=== PATIENT | male | born 1960 | race African-American/Black ===

== ENCOUNTER 2021-10-11 17:19 | Inpatient (IN) ==
[2021-10-11] MEDS ORDERED: FUROSEMIDE 40 MG/4 ML VIAL IV STA (17:44)
[2021-10-11] MEDS ORDERED: methylPREDNISolone SOD SUC 125 MG/2 ML VIAL IV STA (17:44)
[2021-10-11] MEDS ORDERED: ALBUTEROL/IPRATROPIUM 3 ML NEB RESP TX STA (17:44)
[2021-10-11 18:13] LABS: Basophils # 0.1 10*3/uL (0.0-0.2); Eosinophils % 0.1 % (0.00-10.9); Hematocrit 46.1 VOL% (42.0-52.0); Hemoglobin 13.5 GM/DL (14.0-18.0); Immature Granulocytes % 0.3 %; Immature Granulocytes Absolute 0.02 #; Lymphocytes # 1.7 10*3/uL (1.4-4.0); Lymphocytes % 23.5 % (21.2-54.2); Mean Corpuscular HGB Conc 29.3 GM/DL (32-36); Mean Corpuscular Volume 90.7 FL (87-102); Mean Platelet Volume 11.3 FL (9.6-12.0); Monocytes % 9.7 % (1.7-12.7); Neutrophils % 65.4 % (38.7-73.9); Platelet Count 375 T/CUMM (130-400); Red Blood Count 5.08 MC/CUMM (3.8-5.5); Red Cell Distribution Width 21.8 % (9.3-17.3); White Blood Count 7.2 T/CUMM (4-12)
[2021-10-11 18:55] LABS: Albumin 3.3 G/DL (3.4-5.0); Bilirubin,Total 0.6 MG/DL (0.20-1.00); Calcium 10.4 MG/DL (8.5-10.1); Osmolality,Calculated 301.7 MOS/KG (273-304); Potassium 4.1 MMOL/L (3.5-5.1); Total Protein 9.2 G/DL (6.4-8.2)
[2021-10-11] MEDS ORDERED: ONDANSETRON 4 MG/2 ML VIAL IV PRN (19:02)
[2021-10-11] MEDS ORDERED: DOCUSATE SODIUM 100 MG CAPSULE PO PRN (19:02)
[2021-10-11] MEDS ORDERED: guaiFENesin/DM ER 600-30 MG TABLET PO PRN (19:02)
[2021-10-11] MEDS ORDERED: GLUCAGON 1 MG VIAL IM PRN (19:02)
[2021-10-11] MEDS ORDERED: ACETAMINOPHEN 325 MG TABLET PO PRN (19:02)
[2021-10-11] MEDS ORDERED: hydrALAZINE 20 MG/1 ML VIAL IV PRN (19:02)
[2021-10-11] MEDS ORDERED: ZALEPLON 5 MG CAPSULE PO PRN (19:02)
[2021-10-11] MEDS ORDERED: DEXTROSE 50% 25 GM/50 ML SYRINGE IV PRN (19:02)
[2021-10-11] MEDS ORDERED: NICOTINE 21 MG/24 HR PATCH TRANSDERM PRN (19:02)
[2021-10-11] MEDS ORDERED: diphenhydrAMINE CAP 25 MG CAPSULE PO PRN (19:02)
[2021-10-11] MEDS ORDERED: PANTOPRAZOLE 40 MG VIAL IV ONE (19:05)
[2021-10-11] MEDS ORDERED: SODIUM CHLORIDE 0.9% 1,000 ML IV STA (19:29)
[2021-10-11] MEDS: SODIUM CHLORIDE 0.9% 1,000 ML IV SCH (19:33)
[2021-10-11] MEDS ORDERED: ACETAMINOPHEN 325 MG/10.15 ML UDCUP PEG PRN (19:38)
[2021-10-11] MEDS ORDERED: CLINDAMYCIN INJ 600 MG/50 ML PREMIX IV SCH (20:00)
[2021-10-11] MEDS: PIPERACILLIN/TAZOBACTAM 3,375 MG in SODIUM CHLORIDE 0.9% 100 ML IV SCH (20:06)
[2021-10-11 20:15] LABS: Bilirubin,Urine Negative (Negative); Blood, Urine Large mg/dL (Negative); Calcium Oxalate Crystals,Urine Occasional /HPF (Few); Glucose,Urine (UA) Negative (Negative); Ketones,Urine Negative (Negative); Mucus,Urine Occasional /LPF (Occasional); Nitrite,Urine Negative (Negative); Protein,Urine 100 MG/DL; RBC,Urine 537 /HPF (0-4); Urine Appearance CLOUDY (Clear); Urine Color Red (Yellow); Urine Specific Gravity 1.014 (1.001-1.035)
[2021-10-11] MEDS: INSULIN LISPRO 100 UNIT/ML SUBCUT SCH (21:21)
[2021-10-12] MEDS: VANCOMYCIN INJ 1,000 MG in SODIUM CHLORIDE 0.9% 250 ML IV SCH ×2 (00:49→11:45)
[2021-10-12] MEDS: ALBUTEROL/IPRATROPIUM 3 ML NEB RESP TX SCH ×2 (01:25→08:10)
[2021-10-12] MEDS: PIPERACILLIN/TAZOBACTAM 3,375 MG in SODIUM CHLORIDE 0.9% 100 ML IV SCH (05:37)
[2021-10-12 06:29] LABS: Calcium 9.4 MG/DL (8.5-10.1); Osmolality,Calculated 300.7 MOS/KG (273-304); Potassium 3.6 MMOL/L (3.5-5.1)
[2021-10-12 07:21] LABS: Basophils % 0.3 % (0.0-0.8); Hematocrit 41.5 VOL% (42.0-52.0); Hemoglobin 12.2 GM/DL (14.0-18.0); Immature Granulocytes % 0.2 %; Immature Granulocytes Absolute 0.01 #; Lymphocytes # 1.2 10*3/uL (1.4-4.0); Mean Corpuscular HGB Conc 29.4 GM/DL (32-36); Mean Corpuscular Volume 91.4 FL (87-102); Mean Platelet Volume 12.3 FL (9.6-12.0); Monocytes % 5.3 % (1.7-12.7); Neutrophils % 74.2 % (38.7-73.9); Platelet Count 321 T/CUMM (130-400); Red Blood Count 4.54 MC/CUMM (3.8-5.5); Red Cell Distribution Width 21.3 % (9.3-17.3)
[2021-10-12 09:07] LABS: Hypochromia 1+; Lymphocytes 16 % (20-55); Microcytosis 1+; Platelet Estimate Adequate; Segmented Neutrophils 74 % (50-85); Total Cells Counted 100
[2021-10-12] MEDS: PANTOPRAZOLE 40 MG VIAL IV SCH (09:31)
[2021-10-12] MEDS: INSULIN LISPRO 100 UNIT/ML SUBCUT SCH ×4 (09:31→21:45)
[2021-10-12] MEDS ORDERED: SODIUM PHOSPHATE ENEMA 133 ML BOTTLE RECTAL PRN (10:08)
[2021-10-12] MEDS ORDERED: MAGNESIUM HYDROXIDE SUSP 30 ML UDCUP PEG PRN (10:08)
[2021-10-12] MEDS: SODIUM CHLORIDE 0.9% 1,000 ML IV SCH ×2 (10:34→21:43)
[2021-10-12] MEDS ORDERED: INFLUENZA VIRUS VACCINE 0.5 ML SYRINGE IM ONE (11:43)
[2021-10-12] MEDS: levETIRAcetam LIQUID 100 MG/ML 30 ML/BOTTLE PEG SCH ×3 (11:44→23:53)
[2021-10-12] MEDS: POTASSIUM CHLORIDE 20 MEQ PACK PEG SCH ×2 (14:10→21:43)
[2021-10-12] MEDS: HYOSCYAMINE 0.125 MG TABLET PEG SCH ×2 (14:19→21:42)
[2021-10-12] MEDS: LEVALBUTEROL 1.25 MG/3 ML NEB RESP TX SCH (15:37)
[2021-10-12] MEDS: ATORVASTATIN 20 MG TABLET PEG SCH (21:42)
[2021-10-12] MEDS: lisinopriL 2.5 MG TABLET PEG SCH (21:43)
[2021-10-12] MEDS: metFORMIN 500 MG TABLET PEG SCH (21:43)
[2021-10-12] MEDS: INSULIN GLARGINE 100 UNIT/ML SUBCUT SCH (21:45)
[2021-10-13] MEDS: VANCOMYCIN INJ 1,000 MG in SODIUM CHLORIDE 0.9% 250 ML IV SCH (00:45)
[2021-10-13 05:58] LABS: Calcium 8.9 MG/DL (8.5-10.1); Osmolality,Calculated 300.4 MOS/KG (273-304); Potassium 3.9 MMOL/L (3.5-5.1)
[2021-10-13 06:17] LABS: Basophils # 0.1 10*3/uL (0.0-0.2); Basophils % 0.6 % (0.0-0.8); Eosinophils % 0.2 % (0.00-10.9); Hemoglobin 10.4 GM/DL (14.0-18.0); Immature Granulocytes % 0.4 %; Immature Granulocytes Absolute 0.04 #; Lymphocytes # 2.3 10*3/uL (1.4-4.0); Lymphocytes % 21.8 % (21.2-54.2); Mean Corpuscular HGB Conc 28.9 GM/DL (32-36); Mean Corpuscular Volume 93.3 FL (87-102); Mean Platelet Volume 12.4 FL (9.6-12.0); Monocytes % 8.8 % (1.7-12.7); Neutrophils % 68.2 % (38.7-73.9); Platelet Count 265 T/CUMM (130-400); Red Blood Count 3.86 MC/CUMM (3.8-5.5); Red Cell Distribution Width 21.2 % (9.3-17.3); White Blood Count 10.7 T/CUMM (4-12)
[2021-10-13] MEDS: LEVALBUTEROL 1.25 MG/3 ML NEB RESP TX SCH ×4 (07:11→23:29)
[2021-10-13] MEDS: PANTOPRAZOLE 40 MG VIAL IV SCH (09:08)
[2021-10-13] MEDS: INSULIN LISPRO 100 UNIT/ML SUBCUT SCH ×4 (09:08→20:54)
[2021-10-13] MEDS: metFORMIN 500 MG TABLET PEG SCH ×2 (09:09→21:28)
[2021-10-13] MEDS: POTASSIUM CHLORIDE 20 MEQ PACK PEG SCH ×3 (09:10→21:29)
[2021-10-13] MEDS: MULTIVITAMIN LIQUID (CENTRUM) 60 ML BOTTLE PEG SCH (09:11)
[2021-10-13] MEDS: SODIUM CHLORIDE 0.9% 1,000 ML IV SCH ×2 (09:11→11:30)
[2021-10-13] MEDS: HYOSCYAMINE 0.125 MG TABLET PEG SCH ×4 (10:23→21:28)
[2021-10-13] MEDS: levETIRAcetam LIQUID 100 MG/ML 30 ML/BOTTLE PEG SCH ×2 (11:30→23:27)
[2021-10-13] MEDS: PIPERACILLIN/TAZOBACTAM 3,375 MG in SODIUM CHLORIDE 0.9% 100 ML IV SCH ×4 (11:58→21:29)
[2021-10-13] MEDS: ATORVASTATIN 20 MG TABLET PEG SCH (21:28)
[2021-10-13] MEDS: lisinopriL 2.5 MG TABLET PEG SCH (21:29)
[2021-10-13] MEDS: INSULIN GLARGINE 100 UNIT/ML SUBCUT SCH (21:29)
[2021-10-14] MEDS: SODIUM CHLORIDE 0.9% 1,000 ML IV SCH (00:56)
[2021-10-14] MEDS: PIPERACILLIN/TAZOBACTAM 3,375 MG in SODIUM CHLORIDE 0.9% 100 ML IV SCH ×3 (04:34→21:24)
[2021-10-14 06:30] LABS: Calcium 8.2 MG/DL (8.5-10.1); Potassium 3.8 MMOL/L (3.5-5.1)
[2021-10-14 06:34] LABS: Basophils % 0.5 % (0.0-0.8); Eosinophils # 0.2 10*3/uL (0.0-0.87); Eosinophils % 2.7 % (0.00-10.9); Hematocrit 32.8 VOL% (42.0-52.0); Hemoglobin 9.4 GM/DL (14.0-18.0); Immature Granulocytes % 0.3 %; Immature Granulocytes Absolute 0.02 #; Lymphocytes # 1.4 10*3/uL (1.4-4.0); Lymphocytes % 21.7 % (21.2-54.2); Mean Corpuscular HGB Conc 28.7 GM/DL (32-36); Mean Corpuscular Volume 94.5 FL (87-102); Mean Platelet Volume 11.5 FL (9.6-12.0); Monocytes % 9.4 % (1.7-12.7); Neutrophils % 65.4 % (38.7-73.9); Platelet Count 220 T/CUMM (130-400); Red Blood Count 3.47 MC/CUMM (3.8-5.5); Red Cell Distribution Width 20.9 % (9.3-17.3); White Blood Count 6.6 T/CUMM (4-12)
[2021-10-14] MEDS: LEVALBUTEROL 1.25 MG/3 ML NEB RESP TX SCH ×3 (07:18→23:39)
[2021-10-14] MEDS: INSULIN LISPRO 100 UNIT/ML SUBCUT SCH ×4 (08:24→21:33)
[2021-10-14] MEDS ORDERED: MAGNESIUM SULF RIDER 2 GM/50 ML PREMIX IV PRN (08:35)
[2021-10-14] MEDS ORDERED: MAGNESIUM SULF RIDER 4 GM/100 ML PREMIX IV PRN (08:35)
[2021-10-14 09:26] LABS: ABG Base Excess 1.1 MMOL/L (-2.5-2.5); ABG HCO3 25.4 MMOL/L (20-26); ABG Oxygen Saturation 98.8 % (95-100); ABG PCO2 40.5 MM HG (35-48); ABG PH 7.412 (7.35-7.45); ABG TCO2 23.6 MMOL/L (23-27); Allen Test Positive; Pt O2 Delivery Device Venturi Mask
[2021-10-14] MEDS ORDERED: SODIUM CHLORIDE 0.45% 1,000 ML IV SCH (09:30)
[2021-10-14] MEDS: POTASSIUM CHLORIDE 20 MEQ PACK PEG SCH ×3 (09:47→21:21)
[2021-10-14] MEDS: metFORMIN 500 MG TABLET PEG SCH ×2 (09:47→21:23)
[2021-10-14] MEDS: HYOSCYAMINE 0.125 MG TABLET PEG SCH ×3 (09:47→21:23)
[2021-10-14] MEDS: PANTOPRAZOLE 40 MG VIAL IV SCH (09:48)
[2021-10-14] MEDS: levETIRAcetam LIQUID 100 MG/ML 30 ML/BOTTLE PEG SCH (10:13)
[2021-10-14] MEDS: MULTIVITAMIN LIQUID (CENTRUM) 60 ML BOTTLE PEG SCH (10:47)
[2021-10-14] MEDS: ATORVASTATIN 20 MG TABLET PEG SCH (21:22)
[2021-10-14] MEDS: INSULIN GLARGINE 100 UNIT/ML SUBCUT SCH (21:23)
[2021-10-14] MEDS: lisinopriL 2.5 MG TABLET PEG SCH (21:23)
[2021-10-15] MEDS: levETIRAcetam LIQUID 100 MG/ML 30 ML/BOTTLE PEG SCH ×3 (00:21→13:37)
[2021-10-15] MEDS: PIPERACILLIN/TAZOBACTAM 3,375 MG in SODIUM CHLORIDE 0.9% 100 ML IV SCH ×2 (05:06→14:46)
[2021-10-15 05:44] LABS: Basophils % 0.3 % (0.0-0.8); Eosinophils # 0.2 10*3/uL (0.0-0.87); Hematocrit 33.6 VOL% (42.0-52.0); Hemoglobin 9.9 GM/DL (14.0-18.0); Immature Granulocytes % 0.3 %; Immature Granulocytes Absolute 0.02 #; Lymphocytes # 1.5 10*3/uL (1.4-4.0); Lymphocytes % 25.8 % (21.2-54.2); Mean Corpuscular HGB Conc 29.5 GM/DL (32-36); Mean Corpuscular Volume 92.6 FL (87-102); Monocytes % 7.6 % (1.7-12.7); Platelet Count 194 T/CUMM (130-400); Red Blood Count 3.63 MC/CUMM (3.8-5.5); Red Cell Distribution Width 20.2 % (9.3-17.3); White Blood Count 5.8 T/CUMM (4-12)
[2021-10-15 06:04] LABS: Anisocytosis 1+; Platelet Estimate Normal
[2021-10-15 06:05] LABS: Calcium 7.9 MG/DL (8.5-10.1); Macrocytosis Slight; Potassium 3.7 MMOL/L (3.5-5.1)
[2021-10-15 06:06] LABS: Potassium 3.6 MMOL/L (3.5-5.1)
[2021-10-15] MEDS: LEVALBUTEROL 1.25 MG/3 ML NEB RESP TX SCH ×2 (07:30→14:00)
[2021-10-15] MEDS: HYOSCYAMINE 0.125 MG TABLET PEG SCH ×3 (10:36→16:11)
[2021-10-15] MEDS: metFORMIN 500 MG TABLET PEG SCH ×2 (10:36→11:22)
[2021-10-15] MEDS: POTASSIUM CHLORIDE 20 MEQ PACK PEG SCH ×3 (10:36→16:21)
[2021-10-15] MEDS: PANTOPRAZOLE 40 MG VIAL IV SCH (10:37)
[2021-10-15] MEDS: MULTIVITAMIN LIQUID (CENTRUM) 60 ML BOTTLE PEG SCH (11:22)
[2021-10-15] MEDS: INSULIN LISPRO 100 UNIT/ML SUBCUT SCH ×2 (12:09→16:21)
[2021-10-15 16:29] VITALS: BP 120/66
== END 2021-10-15 19:10 | DRG 177 ==
LOC: EDBD → EDUNIT# → N.ED 17:19 → N.EDINP 19:02 → SUATTDRO 19:02 → N.3E 20:46
PROVIDERS: ADMIT Internal Medicine; ATTEND Emergency Medicine